=== PATIENT | female | born 1990 | race Caucasian/White ===

== ENCOUNTER 2018-05-09 18:37 | Emergency (ER) | payer OTHER ==
[2018-05-09 18:45] VITALS: BMI 21.6
[2018-05-09 18:53] VITALS: BP 121/80; PULSE 91; TEMP 98.8; O2SAT 100
--- NOTE | 2018-05-09 19:27 | C.PDOC ---
History Of Present Illness 27 y/o female presents to the ER complaining of pain and swelling to left foot. Patient states that a metal tray fell on her foot while she was working a few hours ago. Patient reports that she has pain with ambulation. Denies having weakness and numbness. Time Seen by Provider: 05/09/18 18:56 Chief Complaint (Nursing): Lower Extremity Problem/Injury History Per: Patient History/Exam Limitations: no limitations Onset/Duration Of Symptoms: Hrs Current Symptoms Are (Timing): Still Present Past Medical History Reviewed: Historical Data, Nursing Documentation, Vital Signs Vital Signs: Last Vital Signs Temp 98.8 F 05/09/18 18:45 Pulse 91 H 05/09/18 18:45 Resp 17 05/09/18 18:45 BP 121/80 05/09/18 18:45 Pulse Ox 100 05/09/18 18:45 - Medical History PMH: No Chronic Diseases Other Surgeries: Hx of surgeries Family History: States: No Known Family Hx - Social History Hx Alcohol Use: No Hx Substance Use: No - Immunization History Hx Tetanus Toxoid Vaccination: No Hx Influenza Vaccination: No Hx Pneumococcal Vaccination: No Review Of Systems Except As Marked, All Systems Reviewed And Found Negative. Musculoskeletal: Positive for: Foot Pain (left foot pain) Neurological: Negative for: Weakness, Numbness Physical Exam - Physical Exam Appears: Non-toxic, No Acute Distress Skin: Normal Color, Warm, Dry Head: Atraumatic, Normacephalic Eye(s): bilateral: Normal Inspection, EOMI Nose: Normal Oral Mucosa: Moist Neck: Normal ROM, Supple Chest: Symmetrical Respiratory: No Accessory Muscle Use Extremity: No Normal ROM (decreased secondary to pain), Tenderness (tenderness to dorsal aspect of left foot), Capillary Refill (<2 sec), Swelling (swelling to dorsal aspect of left foot) Pulses: Left Dorsalis Pedis: Normal, Right Dorsalis Pedis: Normal Neurological/Psych: Oriented x3, Normal Speech, Normal Sensation Gait: Steady ED Course And Treatment O2 Sat by Pulse Oximetry: 100 (RA) Pulse Ox Interpretation: Normal - Other Rad L Foot XR X-Ray: Interpreted by Me, Viewed By Me Interpretation: ? 3rd metatarsal fx Progress Note: X-Ray- Left Foot ordered. Patient treated with Motrin PO. Yung wrap and cast shoe applied. Crutches given. Pt informed possible foot fx. Instructed RICE and follow up with podiatry in 1-2 days. Disposition - Disposition Referrals: Trudy Paez DPM [Staff Provider] - Disposition: HOME/ ROUTINE Disposition Time: 18:30 Condition: STABLE Additional Instructions: Rest, ice and elevate the area. 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 - Scribe Statement The provider has reviewed the documentation as recorded by the Donna Gee Provider Attestation All medical record entries made by the Donna were at my direction and personally dictated by me. I have reviewed the chart and agree that the record accurately reflects my personal performance of the history, physical exam, medical decision making, and the department course for this patient. I have also personally directed, reviewed, and agree with the discharge instructions and disposition.
[2018-05-09 20:20] VITALS: RESP 20
--- NOTE | 2018-05-10 08:35 | RAD ---
Date of service: 05/09/2018 PROCEDURE: Left Foot Radiographs. Three views HISTORY: pain COMPARISON: None. FINDINGS: BONES: Bipartite medial sesamoid bone. No evidence of acute displaced fracture or dislocation. JOINTS: Moderate hallux valgus deformity. SOFT TISSUES: Normal. OTHER FINDINGS: None. IMPRESSION: Moderate hallux valgus deformity. Bipartite medial sesamoid bone. No evidence of acute displaced fracture dislocation. Negative acute. If pain persists, consider MRI.
== END 2018-05-09 20:19 | disposition home or self-care (01) ==
LOC: C.ER 18:37
DX: S92.902A Unspecified fracture of left foot, initial encounter for closed fracture (principal); W22.8XXA Striking against or struck by other objects, initial encounter; Y92.89 Other specified places as the place of occurrence of the external cause; Y99.0 Civilian activity done for income or pay